=== PATIENT | female | born 1985 ===

== ENCOUNTER → 2024-07-25 15:11 | Outpatient (REF) | payer OTHER, SELFPAY | LOC: CLINIC 15:11 | PROVIDERS: ATTENDING PHYSICIAN Nurse Practitioner Adult Health | DX: Z00.00 Encounter for general adult medical examination without abnormal findings (principal) | CPT/HCPCS: 87070; 87102 ==

== ENCOUNTER → 2024-07-30 11:01 | Outpatient (REF) | payer OTHER, SELFPAY ==
[2024-07-30 12:33] LABS: % Basophils 0.5 % (0-2); % Eosinophils 1.4 % (0-6); % Immature Granulocytes 0.3 % (0-0.5); % Lymphocytes 39.2 % (20.5-51.1); % Monocytes 7.2 % (1.7-9.3); % Neutrophils 51.4 % (42.2-75.2); Absolute Eosinophils 0.1 10^3/uL (0-0.7); Absolute Lymphocytes 2.5 10^3/uL (1.2-3.4); Absolute Monocytes 0.5 10^3/uL (0.1-0.6); Absolute Neutrophils 3.2 10^3/uL (1.4-6.5); Hematocrit 41.3 % (37.0-47.0); Hemoglobin 13.7 g/dL (12.0-16.0); Mean Corp Hgb Conc. 33.2 g/dL (33.0-37.0); Mean Corpuscular Hgb 30.6 pg (27.0-31.0); Mean Corpuscular Volume 92.4 fL (81.0-99.0); Mean Platelet Volume 11.2 fL (7.4-10.4); Nucleated Red Blood Cells % 0 %; Platelet Count 279 10^3/uL (130-400); Red Blood Cell Count 4.47 10^6/uL (4.20-5.40); Red Cell Dist. Width 12.8 % (11.5-14.5); White Blood Cell Count 6.3 10^3/uL (4.8-10.8)
[2024-07-30 12:45] LABS: ALT (SGPT) 55 U/L (0-35); AST (SGOT) 37 U/L (14-36); Albumin 4.2 g/dl (3.5-5.0); Alkaline Phosphatase 80 U/L (38-126); Blood Urea Nitrogen 11 mg/dl (7-17); Carbon Dioxide 26 mmol/L (22-30); Chloride 105 mmol/L (98-107); Glucose 103 mg/dl (70-99); HDL Cholesterol 50 mg/dl; LDL Cholesterol, Calculated 155 mg/dl; Potassium 4.2 mmol/L (3.5-5.1); Sodium 139 mmol/L (135-145); Total Bilirubin 0.7 mg/dl (0.2-1.3); Total Cholesterol 230 mg/dl (50-199); Total Protein 6.8 g/dl (6.3-8.2); Triglyceride 126 mg/dl (10-149); Very Low Density Lipoprotein 25 mg/dl (0-30); eGFR > 60.00
[2024-07-30 13:14] LABS: TSH 1.19 uIU/ml (0.47-4.68)
== END ==
LOC: CLINIC 11:01
PROVIDERS: ATTENDING PHYSICIAN Nurse Practitioner Adult Health
DX: Z00.00 Encounter for general adult medical examination without abnormal findings (principal)
CPT/HCPCS: 36415; 80053; 80061; 84443; 85025